=== PATIENT | female | born 1960 | race Two or more races ===

== ENCOUNTER 2017-04-03 05:44 | Inpatient (IN) | payer OTHER ==
[~2017-04-03] VITALS: Ht 170.2 cm; Wt 108.0 kg
[2017-04-03] VITALS (13 sets, daily range): BP systolic 119–145; BP diastolic 67–87
[2017-04-03] MEDS ORDERED: LR 1000ml 1,000 ML IVLG SCH (06:16)
[2017-04-03] MEDS ORDERED: Vancomycin 1gm inj IVPB ONE (06:26)
[2017-04-03] MEDS ORDERED: Thrombin 5000 units TOPIC ONE (06:26)
[2017-04-03] MEDS ORDERED: Bacitracin 50000 Units Vial ONE (06:27)
[2017-04-03] MEDS ORDERED: Bupivacaine 0.5% Inj 30 ml vial INJ ONE ×2 (06:27→07:19)
[2017-04-03] MEDS ORDERED: Norco 5mg/325mg tab ORAL PRN ×2 (06:30→07:30)
[2017-04-03] MEDS ORDERED: Midazolam 2mg/2ml Inj IVP PRN (06:30)
[2017-04-03] MEDS ORDERED: Norco 7.5mg/325mg tab ORAL PRN ×3 (06:30→07:30)
[2017-04-03] MEDS ORDERED: Ketorolac 30mg Inj IV PRN (06:30)
[2017-04-03] MEDS ORDERED: LORazepam Inj 2mg/ml 1ml IV PRN (06:30)
[2017-04-03] MEDS ORDERED: Acetaminophen (Non formulary) 100 ML IV ONE (06:30)
[2017-04-03] MEDS ORDERED: DiphenhydrAMINE 50mg/ml Inj IVP PRN (06:30)
[2017-04-03] MEDS ORDERED: Metoclopramide 10mg/2ml Inj IVP PRN ×2 (06:30→07:30)
[2017-04-03] MEDS ORDERED: oxyCODONE HCL/Acetaminophen 5/325mg ORAL PRN (06:30)
[2017-04-03] MEDS ORDERED: Atropine Inj 1mg/10ml Syr IV PRN (06:30)
[2017-04-03] MEDS ORDERED: Hydromorphone 0.5mg/0.5ml inj IVP PRN (06:30)
[2017-04-03] MEDS ORDERED: Ketorolac 60mg Inj IV PRN (06:30)
[2017-04-03] MEDS ORDERED: fentaNYL 100 mcg/2 mL IV PRN (06:30)
[2017-04-03] MEDS ORDERED: Labetalol 5mg/ml 20ml vial IV PRN (06:30)
[2017-04-03] MEDS ORDERED: NKM (06:39)
[2017-04-03] MEDS ORDERED: Glycopyrrolate 0.2mg/ml 1ml Vial ONE (07:00)
[2017-04-03] MEDS ORDERED: NS Irrig 1000ml ONE (07:00)
[2017-04-03] MEDS ORDERED: Neostigmine 1mg/ml 10ml Inj ONE (07:00)
[2017-04-03] MEDS ORDERED: Lidocaine 1% MPF 10mg/ml 5ml ONE (07:00)
[2017-04-03] MEDS ORDERED: Midazolam 2mg/2ml Inj ONE (07:00)
[2017-04-03] MEDS ORDERED: Dexamethasone 4mg/ml vial ONE (07:00)
[2017-04-03] MEDS ORDERED: LR 1000ml ONE (07:00)
[2017-04-03] MEDS ORDERED: Sterile Water Irrig 1000ml IRRIG ONE (07:00)
[2017-04-03] MEDS ORDERED: fentaNYL 100 mcg/2 mL IV ONE (07:00)
[2017-04-03] MEDS ORDERED: Propofol 1,000mg/ 100ml btl IV ONE (07:00)
[2017-04-03] MEDS ORDERED: ceFAZolin sod 2 GM in D5W 110 ML IVPB ONE (07:00)
--- NOTE | 2017-04-03 07:02 | Anethesia Preoperative Eval ---
Anesthesia Pre-op PMH/ROS General Date of Evaluation: Apr 03, 2017 Time of Evaluation: 07:11 Anesthesiologist: Joel ASA Score: ASA 3 Mallampati Score Class I : Soft palate, uvula, fauces, pillars visible Class II: Soft palate, uvula, fauces visible Class III: Soft palate, base of uvula visible Class IV: Only hard plate visible Mallampati Classification: Class II Surgeon: Phil Diagnosis: Back Pain Surgical Procedure: R Hemilaminotomy, Foraminotomy, Microdiscetomy, L5-S1, and L4-5 with Baxano Anesthesia History: none Family History: no anesthesia problems Allergies: Coded Allergies: No Known Allergies (Unverified , 04/02/17) Medications: see eMAR Past Medical History Cardiovascular: Reports: HTN, other - HL Other: obesity - BMI 40 Anesthesia Pre-op Phys. Exam Physician Exam Last Vital Signs Date Time Temp Pulse Resp B/P (MAP) Pulse Ox O2 Delivery O2 Flow Rate FiO2 04/03/17 06:52 97.8 69 20 145/87 97 Room Air Constitutional: NAD Neurologic: CN 2-12 intact Cardiovascular: RRR Respiratory: CTA Gastrointestinal: S/NT/ND Airway Exam Mallampati Score: Class II MO: full ROM: full Teeth: intact Anesthesia Pre-op A/P Risk Assessment & Plan Assessment: ASA 3 Plan: GA, BIS, GlideScope Status Change Before Surgery: No Pre-Antibiotics Dru Grams Ancef IV Given Within 1 Hr of Incision: Yes Time Given: 07:31 Geoffrey Maldonado MD Apr 03, 2017 07:02
--- NOTE | 2017-04-03 07:29 | Pre-Procedure Note/Attestation ---
Pre-Procedure Note/Attestation Complete Prior to Procedure Planned Procedure: right Procedure Narrative: Right sided L5S1 microdiscectomy, hemilaminotomy foraminotomy decompression of L5S1 and L45 with baxano Indications for Procedure Pre-Operative Diagnosis: stenosis, herniation at L45 and L5S1 Attestation I attest that I discussed the nature of the procedure; its benefits; risks and complications; and alternatives (and the risks and benefits of such alternatives ), prior to the procedure, with the patient (or the patient's legal inbound customer service representative). I attest that, if there was a reasonable possibility of needing a blood transfusion, the patient (or the patient's legal inbound customer service representative) was given the [place] Department [employer] standardized written summary, pursuant to the Julio Rigo Blood Safety Act ([place] Health and Safety Code # 1645, as amended). I attest that I re-evaluated the patient just prior to the surgery and that there has been no change in the patient's H&P, except as documented below: JAGDEEP RODNEY Apr 03, 2017 07:29
[2017-04-03] MEDS ORDERED: HYDROmorphone 1mg/ml Carpuject SUBQ PRN (07:30)
[2017-04-03] MEDS ORDERED: Naloxone 0.4mg/ml Inj IVP PRN (07:30)
[2017-04-03] MEDS ORDERED: HYDROmorphone 1mg/ml Carpuject IVP PRN (07:30)
[2017-04-03] MEDS ORDERED: Chloraseptic Spray 20mL Bottle ORAL PRN (07:30)
[2017-04-03] MEDS ORDERED: Milk of Magnesia 30ml Ud ORAL PRN (07:30)
--- NOTE | 2017-04-03 07:30 | Brief Operative Note ---
Immediate Post Operative Note Operative Note Chief Complaint: back pain and right leg pain Pre-op Diagnosis: stenosis, herniation at L45 and L5S1 Procedure: Right sided L5S1 microdiscectomy, hemilaminotomy foraminotomy decompression of L5S1 and L45 with bridger Post-op Diagnosis: same as pre-op Findings: consistent w/pre-op dx studies Surgeon: Phil Coating Mixer Tender: Amina Anesthesia: general Specimen: none Complications: none Condition: stable Estimated Blood Loss: minimal Drains: none Implant(s) used?: Yes - bridger ubtcher 12 JAGDEEP RODNEY Apr 03, 2017 07:30
--- NOTE | 2017-04-03 08:24 | Immediate Post-Op Evaluation ---
Immediate Post-Op Evalulation Immediate Post-Op Evalulation Procedure: R Hemilaminotomy, Foraminotomy, Microdiscetomy, L5-S1, and L4-5 with Baxano Date of Evaluation: Apr 03, 2017 Time of Evaluation: 09:54 IV Fluids: 1000 LR Blood Products: 0 Estimated Blood Loss: 50 Urinary Output: 450 Blood Pressure Systolic: 133 Blood Pressure Diastolic: 74 Pulse Rate: 75 Respiratory Rate: 16 O2 Sat by Pulse Oximetry: 100 Temperature (Fahrenheit): 98.9 Pain Score (1-10): 3 Nausea: No Vomiting: No Complications 0 Patient Status: awake, reacts, patent, extubated, none Hydration Status: adequate Dru Grams Ancef IV Given Within 1 Hr of Incision: Yes Time Given: 07:31 Geoffrey Maldonado MD Apr 03, 2017 08:24
--- NOTE | 2017-04-03 12:44 | Diagnostic Imaging Report ---
Indication: Right lower extremity pain, intraoperative Technique: Intraoperative images Comparison: none Findings: Intraoperative images document initially a surgical tool posterior to the L5 vertebral body, subsequently placement of the Baxano device at the L5-S1 level Impression: Intraoperative imaging, as described
[2017-04-03] MEDS: Dexamethasone 4mg/ml vial IVP SCH ×2 (14:05→18:08)
--- NOTE | 2017-04-03 14:44 | Consultation ---
History of Present Illness General Date patient seen: Apr 03, 2017 Time patient seen: 14:44 Chief Complaint: back pain and R leg pain Referring physician: Dr. Villarreal Reason for Consultation: valentina saab Present Illness HPI 57y/o female with pmh of stenosis and herniation at L45 and L5S1 who is now s/p R sided L5S1 microdiscectomy, hemilaminotomy foraminotomy decompression of L5S1 and L45 with baxano on 04/03/17. No periop or postop complications. Postop pain appears well controlled. Denies f/c, n/v, d/c, chest pain, SOB. Allergies: Coded Allergies: No Known Allergies (Unverified , 04/02/17) Medication History Scheduled No Known Medications* (NKM - No Known Medications*), 0 ., (Reported) Patient History History Provided By: Patient, Family Member, PMD Healthcare decision maker TERESA-SON Resuscitation status Full Code Advanced Directive on File Past Medical/Surgical History Past Medical/Surgical History: (1) Lumbar spinal stenosis (2) HNP (herniated nucleus pulposus), lumbar Family History Family History: (1) No significant family history Social History Social History: (1) No significant social history Review of Systems ROS Narrative CONSTITUTIONAL: No weight loss, fever, chills, weakness or fatigue. HEENT: Eyes: No visual loss, blurred vision, double vision or yellow sclerae. Ears, Nose, Throat: No hearing loss, sneezing, congestion, runny nose or sore throat. SKIN: No rash or itching. CARDIOVASCULAR: No chest pain, chest pressure or chest discomfort. No palpitations or edema. RESPIRATORY: No shortness of breath, cough or sputum. GASTROINTESTINAL: No anorexia, nausea, vomiting or diarrhea. No abdominal pain or blood. NEUROLOGICAL: No headache, dizziness, syncope, paralysis, ataxia, numbness or tingling in the extremities. No change in bowel or bladder control. MUSCULOSKELETAL: No muscle, back pain, joint pain or stiffness. HEMATOLOGIC: No anemia, bleeding or bruising. LYMPHATICS: No enlarged nodes. No history of splenectomy. PSYCHIATRIC: No history of depression or anxiety. ENDOCRINOLOGIC: No reports of sweating, cold or heat intolerance. No polyuria or polydipsia. ALLERGIES: No history of asthma, hives, eczema or rhinitis. Physical Exam Physical Exam Narrative General: alert, cooperative, no distress, appears stated age Head: normocephalic, without obvious abnormality, atraumatic Eyes: conjunctivae/corneas clear. PERRL, EOM's intact Throat: lips, mucosa, and tongue normal. MMM Neck: supple, symmetrical, trachea midline, and no JVD Lungs: clear to auscultation bilaterally Heart: regular rate and rhythm, S1, S2 normal, no murmur, click, rub or gallop Abdomen: soft, non-tender, non-distended, bowel sounds normal; no masses or organomegaly Extremities: extremities normal, atraumatic, no cyanosis or edema Pulses: 2+ and symmetric Skin: skin color, texture, turgor normal; dressing c/d/i Neurologic: grossly normal, no focal deficits Last 24 Hour Vital Signs Date Time Temp Pulse Resp B/P (MAP) Pulse Ox O2 Delivery O2 Flow Rate FiO2 04/03/17 13:15 97.7 72 18 123/69 96 Nasal Cannula 2.0 04/03/17 12:15 97.9 75 18 126/70 98 Nasal Cannula 2.0 04/03/17 11:45 97.7 71 18 123/69 95 Nasal Cannula 2.0 04/03/17 10:45 98.9 74 19 134/79 98 Nasal Cannula 2.0 04/03/17 10:36 98.9 04/03/17 10:36 98.9 04/03/17 10:30 73 20 135/79 98 Nasal Cannula 2.0 04/03/17 10:15 68 20 141/79 98 Nasal Cannula 2.0 04/03/17 10:03 73 19 134/78 97 Simple Mask 6.0 04/03/17 09:53 77 18 136/81 97 Simple Mask 6.0 04/03/17 09:48 77 18 142/79 97 Simple Mask 6.0 04/03/17 09:46 75 16 100 04/03/17 09:43 98.9 76 18 131/83 97 Simple Mask 6.0 04/03/17 06:52 97.8 69 20 145/87 97 Room Air 04/03/17 06:30 98.9 Intake and Output 04/03/17 04/04/17 19:00 07:00 Intake Total 1240 ml Output Total 500 ml Balance 740 ml Intake Oral 240 ml IV Total 1000 ml Output Urine Total 450 ml Estimated Blood Loss 50 ml Height (Feet): 5 Height (Inches): 7.00 Weight (Pounds): 238 Medications Current Medications Medications (Trade) Dose Ordered Sig/Jacqueline Route PRN Reason Start Time Stop Time Status Last Admin Dose Admin Acetaminophen (Tylenol) 650 mg Q4H PRN ORAL headache or temp>101 04/03/17 07:30 05/03/17 07:29 Acetaminophen/ Hydrocodone Bitart ([place] 5/325) 1 tab Q1H PRN ORAL Mild Pain (Pain Scale 1-3) 04/03/17 06:30 Acetaminophen/ Hydrocodone Bitart ([place] 5/325) 1 tab Q3H PRN ORAL pain score 1-3 04/03/17 07:30 04/10/17 07:29 Acetaminophen/ Hydrocodone Bitart ([place] 7.5/325) 1 ea Q1H PRN ORAL Moderate Pain (Pain Scale 4-6) 04/03/17 06:30 Acetaminophen/ Hydrocodone Bitart ([place] 7.5/325) 1 ea Q3H PRN ORAL pain score 4-6 04/03/17 07:30 04/10/17 07:29 Acetaminophen/ Hydrocodone Bitart ([place] 7.5/325) 2 ea Q3H PRN ORAL pain scale 7-10 04/03/17 07:30 04/10/17 07:29 Al Hydroxide/Mg Hydroxide (Mylanta) 15 ml Q1H PRN ORAL gi upset 04/03/17 06:30 Atropine Sulfate (Atropine) 0.5 mg Q5M PRN IV HR <40 04/03/17 06:30 Carisoprodol (Soma) 350 mg TIDPRN PRN ORAL SPASM 04/03/17 07:30 05/03/17 07:29 Cefazolin Sodium 1 gm/Dextrose 55 ml @ 110 mls/hr Q8H IV 04/03/17 16:00 04/04/17 08:29 Cetylpyridinium Chloride (Cepacol) 1 lozenge EVERY 2 HOURS PRN GIANFRANCO To Patient Comfort 04/03/17 07:30 05/03/17 07:29 04/03/17 14:05 Dexamethasone Sodium Phosphate (Decadron 4mg/ml vial) 4 mg Q6HR IVP 04/03/17 12:45 04/04/17 06:01 04/03/17 14:05 Diphenhydramine HCl (Benadryl) 25 mg Q15M PRN IVP Itching 04/03/17 06:30 Docusate Sodium (Colace) 100 mg TWICE A DAY ORAL 04/03/17 18:00 05/03/17 17:59 Fentanyl Citrate (Sublimaze 100 mcg/2 mL) 25 mcg Q10M PRN IV Moderate Pain (Pain Scale 4-6) 04/03/17 06:30 Hydralazine HCl (Apresoline) 5 mg Q30M PRN IV SBP>160 / DBP>90 04/03/17 06:30 Hydromorphone HCl (Dilaudid) 0.5 mg Q15M PRN IVP Severe Pain (Pain Scale 7-10) 04/03/17 06:30 04/03/17 10:24 Hydromorphone HCl (Dilaudid) 1 mg Q2H PRN IVP Breakthrough Pain 04/03/17 07:30 04/10/17 07:29 Hydromorphone HCl (Dilaudid) 1 mg Q4H PRN SUBQ Mild Pain (Pain Scale 1-3) 04/03/17 07:30 04/10/17 07:29 Hydromorphone HCl (Dilaudid) 2 mg Q3H PRN SUBQ Severe Pain (Pain Scale 7-10) 04/03/17 07:30 04/10/17 07:29 Hydromorphone HCl (Dilaudid) 2 mg Q4H PRN SUBQ Moderate Pain (Pain Scale 4-6) 04/03/17 07:30 04/10/17 07:29 Ketorolac Tromethamine (Toradol 30mg) 15 mg Q1H PRN IV Moderate Breakthru Pain (5-7) 04/03/17 06:30 Ketorolac Tromethamine (Toradol) 60 mg Q1H PRN IV Severe Breakthru Pain (>7) 04/03/17 06:30 04/03/17 10:06 Labetalol HCl (Normodyne) 5 mg Q10M PRN IV SBP>160 / DBP>90 04/03/17 06:30 04/04/17 06:29 Lorazepam (Ativan 2mg/ml 1ml) 1 mg Q15M PRN IV For Anxiety 04/03/17 06:30 Magnesium Hydroxide (Mom) 30 ml QIDPRN PRN ORAL Constipation 04/03/17 07:30 05/03/17 07:29 Metoclopramide HCl (Reglan) 10 mg Q1H PRN IVP Nausea & Vomiting 04/03/17 06:30 Metoclopramide HCl (Reglan) 10 mg Q6H PRN IVP for moderate N/V 04/03/17 07:30 05/03/17 07:29 Midazolam HCl (Versed 2mg/2ml vial) 1 mg Q15M PRN IVP For Anxiety 04/03/17 06:30 Naloxone HCl (Narcan) 0.1 mg PRN PRN IVP RR<12/min, pt unarousable 04/03/17 07:30 05/03/17 07:29 Ondansetron HCl (Zofran) 4 mg Q1H PRN IVP Nausea & Vomiting 04/03/17 06:30 Ondansetron HCl (Zofran) 4 mg Q6H PRN IVP SEVERE Nausea & Vomiting 04/03/17 07:30 05/03/17 07:29 Oxycodone/ Acetaminophen (Percocet 5-325) 1 tab Q1H PRN ORAL Severe Pain (Pain Scale 7-10) 04/03/17 06:30 Phenol/Menthol (Chloraseptic) 1 spray Q3H PRN ORAL To Patient Comfort 04/03/17 07:30 05/03/17 07:29 Prochlorperazine (Compazine) 10 mg Q6H PRN IVP Nausea & Vomiting 04/03/17 07:30 05/03/17 07:29 Sodium Chloride 1,000 ml @ 100 mls/hr Q10H IV 04/03/17 13:30 05/03/17 13:29 Temazepam (Restoril) 15 mg HSPRN PRN ORAL Insomnia 04/03/17 07:30 04/10/17 07:29 Assessment/Plan Problem List: (1) Lumbar spinal stenosis ICD Codes: M48.061 - Spinal stenosis, lumbar region without neurogenic claudication SNOMED: 50414581 (2) HNP (herniated nucleus pulposus), lumbar ICD Codes: M51.26 - Other intervertebral disc displacement, lumbar region SNOMED: 375363552 Status: stable Assessment/Plan s/p R sided L5S1 microdiscectomy, hemilaminotomy foraminotomy decompression of L5S1 and L45 with baxano on 04/03/17 Post operative recommendations include: - encourage mobilization/ambulation - encourage incentive spirometry to optimize pulmonary hygiene - DVT/GI prophylaxis as appropriate - PT/OT - pain control, supportive care, bowel regimen FULL CODE D/w pt/family, RN, surgery regarding mgmt and dispo Rich Gonzales M.D. Apr 03, 2017 14:44
[2017-04-03] MEDS: ceFAZolin sod 1 GM in D5W 55 ML IV SCH (15:51)
[2017-04-03] MEDS: NS w/KCl 20mEq 1,000 ML IV SCH ×2 (15:51→23:23)
[2017-04-03] MEDS: Docusate 100mg cap ORAL SCH (18:08)
[2017-04-04] VITALS: BP 110/66
[2017-04-04] MEDS: ceFAZolin sod 1 GM in D5W 55 ML IV SCH ×2 (01:21→09:20)
[2017-04-04] MEDS: Dexamethasone 4mg/ml vial IVP SCH ×2 (01:21→06:54)
[2017-04-04 04:00] VITALS: BP 126/65
[2017-04-04 08:00] VITALS: BP 122/62
[2017-04-04] MEDS: NS w/KCl 20mEq 1,000 ML IV SCH (09:20)
[2017-04-04] MEDS: Docusate 100mg cap ORAL SCH (09:20)
[2017-04-04 10:45] VITALS: BP 122/62
--- NOTE | 2017-04-04 10:45 | 48 Hour Post Anesthesia Eval ---
Post Anesthesia Evaluation Procedure: R Hemilaminotomy, Foraminotomy, Microdiscetomy, L5-S1, and L4-5 with Baxano Date of Evaluation: Apr 04, 2017 Time of Evaluation: 10:43 Blood Pressure Systolic: 122 0: 62 Pulse Rate: 72 Respiratory Rate: 20 Temperature (Fahrenheit): 97.6 O2 Sat by Pulse Oximetry: 98 Airway: patent Nausea: No Vomiting: No Pain Intensity: 2 Hydration Status: adequate Cardiopulmonary Status: stable Mental Status/LOC: patient returned to baseline Follow-up Care/Observations: n/a Post-Anesthesia Complications: none Follow-up care needed: N/A CASIE DURHAM M.D. Apr 04, 2017 10:45
[2017-04-04] MEDS ORDERED: Flu Vaccine Quadrivalent 0.5ml IM ONE (16:30)
--- NOTE | 2017-04-04 21:45 | Discharge Summary ---
DATE OF ADMISSION: 04/03/2017 DATE OF DISCHARGE: 04/04/2017 PROCEDURE PERFORMED DURING ADMISSION: Hemilaminotomy, foraminotomy, and microdiscectomy of right-sided L4-L5 and L5-S1. REASON FOR ADMISSION: Lumbar herniation at L4-L5 and L5-S1. HOSPITAL COURSE/TREATMENT RENDERED: PROCEDURE PERFORMED DURING ADMISSION: Hemilaminotomy, foraminotomy, and microdiscectomy of right-sided L4-L5 and L5-S1. DISCHARGE PHYSICAL EXAMINATION: 1. The patient was ambulating with and without the assistance of physical therapy. 2. Prior to discharge home, incision was clean and dry with minimal swelling. 3. Follows commands. 4. Alert and oriented. 5. Hall discontinued, voiding. 6. Incentive spirometer at bedside. 7. IVF Hep-Locked. MOTOR: Demonstrates expected postoperative bulk and tone. Moves biceps, triceps, and deltoid musculature on command. Moves hip flexors, quadriceps, tibialis anterior, EHL, gastrocsoleus musculature on command as well. TREATMENT RENDERED: 1. Daily nursing care. 2. Physical therapy. 3. Occupational therapy. 4. Intravenous medications. 5. Oral medications. 6. Daily postoperative examinations by Spine Surgery team. CONDITION OF PATIENT ON DISCHARGE: The condition on discharge is stable for discharge to home. DISCHARGE INSTRUCTIONS: Our specific instructions relating to physical activity, medications, diet, and follow-up care are detailed in our standard operative folder and were given to this patient prior to surgery. We will however summarize these briefly as stated below. Regarding physical activity, we would like the patient to limit their flexion, extension, and rotation. We also require a limitation on their bending, lifting, and twisting. All medication has been called in prior to surgery to their pharmacy of choice. They can resume their regular diet once tolerated. We would like them to shower and limit soaking the wound in a tub/Jacuzzi/the ocean for a period of one month or until the incision is completely healed. We will have them follow up in our office in three weeks' time for their regularly scheduled appointment. They understand to call our office tomorrow to schedule the time for their three-week followup appointment. The patient will notify us should they experience any increase in the severity of pain, redness, swelling, or drainage from their incision. Vinnie Villarreal M.D. DR: Noemi JOB#: [id number] CC: SOLANGE
--- NOTE | 2017-04-07 12:15 | Operative Note - Dictated ---
DATE OF OPERATION: 04/03/2017 SURGEON: Vinnie Villarreal MD, Orthopaedic Spine Surgeon INSULATION HELPER: CHAN Adair ANESTHESIA: General endotracheal anesthesia. PREOPERATIVE DIAGNOSES: 1. Intractable back pain. 2. Intractable leg pain. 3. Worsening radiculopathy. 4. Weakness. 5. Herniated nucleus pulposus, L4-L5 and L5-S1. 6. Neural foraminal stenosis, L4-L5 and L5-S1. POSTOPERATIVE DIAGNOSES: 1. Intractable back pain. 2. Intractable leg pain. 3. Worsening radiculopathy. 4. Weakness. 5. Herniated nucleus pulposus, L4-L5 and L5-S1. 6. Neural foraminal stenosis, L4-L5 and L5-S1. PROCEDURES PERFORMED: 1. Right-sided L4-L5 and L5-S1 microdiscectomy. 2. L4-L5 and L5-S1 hemilaminotomy, foraminotomy and medial facetectomy. 3. L4-L5 and L5-S1 neural foraminotomy through a transpedicular intraforaminal approach. 4. Use of intraoperative microscope. 5. Supervision and interpretation of intraoperative fluoroscopy. 6. Supervision and interpretation of somatosensory-evoked potential and free running EMG monitoring. EBL: Less than 100 mL. COMPLICATIONS: None. INDICATIONS FOR THE PROCEDURE: The patient presents for intractable back pain and radiculopathy. The patient tried and failed a prolonged course of conservative management, including but not limited to chiropractic therapy, physical therapy, nonsteroidal anti-inflammatory drugs, medication, ice packs as well as epidural injection. Despite these therapies, the patient still developed recalcitrant pain and elected for definitive management in the form of right-sided L4-L5 and L5-S1 microdiscectomy; L4-L5 and L5-S1 hemilaminotomy, foraminotomy and medial facetectomy; and L4-L5 and L5-S1 neural foraminotomy through a transpedicular intraforaminal approach. We had a long discussion with him regarding definitive surgical treatment options. The patient's MRI demonstrated herniated nucleus pulposus, L4-L5 and L5-S1 and neural foraminal stenosis, L4-L5 and L5-S1 and as a result, I felt he would benefit from the discectomy as well as neural foraminotomy at this level. We had a long discussion with the patient regarding the risks, alternatives, and benefits of surgery. Our description of the risks included a discussion in person as well as a signed consent which detailed all pertinent risks and the procedure itself. Briefly, our discussion included but was not limited to infection, bleeding, pseudarthrosis, spinal cord injury, neurovascular injury, dural tear, CSF leak, neuropathy, paralysis, permanent weakness/drop foot, paresthesias blindness, palsy and weakness. The patient understood there may be a need for revision surgery or additional procedures. Approach related complications including dysphonia, dysphagia, blindness, permanent vocal cord and neural injury, hematoma, swallowing and breathing difficulty. Medical complications including liver, kidney, shock, and cardiopulmonary failure. Anesthesia complications including , swelling. Damage to the musculature, larynx (voice injury or loss),esophagus (throat), trachea, blood vessels and muscles (muscular sprain) and lungs (pneumothorax) during this surgical procedure. Injury to deeper structures may be temporary or permanent. The patient understood these and elected to proceed. A written and verbal consent was given. We discussed the pros and cons of all the alternatives. We discussed the uncertainties associated with the decision. Afterwards I assessed the patients understanding and explored their preferences. All questions were answered and no guarantees were given. Medical clearance was obtained prior to surgery. OPERATIVE FINDINGS: A broad-based disc herniation at L4-L5 and L5-S1, which encroached on the thecal sac and neural foraminal elements therein. This disc was acute in nature and not calcified. It was mobile and free floating and resected easily. There were also neural foraminal stenoses at L4-L5 and L5-S1. DESCRIPTION OF PROCEDURE: Under the benefit of general endotracheal anesthesia and with the assistance of the entire operative team, the patient was moved from the [facility] onto the operative table in the prone position on a Jose frame. The head was secured and positioned appropriately. Bilateral arms were secured with Gel pads and foam and all bony prominences were padded. The bilateral lower extremity SCD and LAURENCE hose were placed for DVT prophylaxis. A surgical timeout was called which corroborated our planned procedure. Preoperative Antibiotics were administered within 30 minutes of the incision for prophylaxis. Decadron was given for preoperative steroids. Using lateral radiography, the operative levels were delineated. An incision was marked based on our interpretation of lateral radiography and afterwards the body was prepped and draped in the usual sterile manner. The family was notified that we were ready to commence surgery and were called in the waiting room hourly for updates. An incision was based on our lateral fluoroscopic image to center the incision at the L5-S1 interspace. The wound was prepped and draped in the usual sterile fashion. Using a scalpel a midline incision was taken down through the skin and subcutaneous tissues until the overlying hemilamina of L4-L5 and L5-S1 were visualized. Next, using meticulous hemostasis, hemilaminotomies were dissected and retractors were placed. Using a Jasper dental we confirmed placement at the L4-L5 and L5-S1 interspace. We next turned our attention to our decompression. A standard hemilaminotomy foraminotomy medial facetectomy was performed at each level in standard fashion using a Midas-Kendall type AM8 drill bit, straight and angled curettage, and Kerr[place] 4 rongeurs until the lateral thecal sac margin and traversing nerve root was visualized. All remainders of the ligamentum flavum and lateral bony margins were resected in total with angled curettage and Kerrison 4 rongeurs until the lateral thecal sac margin and traversing nerve root was visualized and decompressed. We next turned our attention toward our L4-L5 and L5-S1 microdiscectomy on the right side. A [place] 4 was used to gently mobilize the thecal sac medially and this was held retracted with a bayonetted nerve root retractor. It was at this point that we noted a large broad-based disc protrusion with encroachment dorsally on the thecal sac neural foraminal contents. A bayonet and nerve root retractor was then placed carefully to retract the thecal sac and a discectomy was performed using a combination of a long handled 15 blade scalpel, downgoing and straight pituitaries and downgoing curettage. Afterward the disc space was irrigated twice with 20 mL of antibiotic-impregnated saline. All loose and free-floating disc fragments were carefully resected with a narrow pituitary. Having been satisfied with our decompression after our discectomy of all neural elements we next turned our attention to our neural foraminoplasty/foraminotomy. This was performed through a transpedicular intraforaminal approach using an access probe followed by a neuro check device, which confirmed ventral placement of our nerve root. Once we confirmed we were safe we next turned our attention towards placement of our size 10 file under direct microscopic visualization and under lateral fluoroscopy. Using pre and post reciprocation imaging we were able to visualize our direct decompression given the reciprocation allowed for re-creation of the neural foraminal arch at L4-L5 and L5-S. Afterwards hemostasis was obtained with 60 mL of antibiotic-impregnated saline followed by FloSeal and Gelfoam. After sponge and needle count were found to be correct, next we turned our attention to closure. Closure consisted of 1-0 Vicryl in standard interrupted fashion. Zosyn was placed deep to the fascia and superficial to the fascia for Antibiotic prophylaxis. Skin closure was performed with 2-0 Vicryl in interrupted fashion followed by a running Monocryl for the skin. Final dressings consisted of Dermabond for the superficial skin, Telfa and Tegaderm. The patient tolerated the procedure well. The patient was extubated after the conclusion of surgery without incident. We discussed the findings of the surgery with the family upon completion of the case. At this point the patient will be transferred to the spine floor for further observation. Vinnie Villarreal M.D. DR: BREANNA JOB#: [id number] CC: SOLANGE
== END 2017-04-04 16:15 | disposition home or self-care (01) | DRG 520 ==
LOC: SDSOVERFLO 05:44 → 3E 12:00
DX: M51.16 Intervertebral disc disorders with radiculopathy, lumbar region (principal); E66.01 Morbid (severe) obesity due to excess calories; I10 Essential (primary) hypertension; M51.17 Intervertebral disc disorders with radiculopathy, lumbosacral region; Z68.37 Body mass index [BMI] 37.0-37.9, adult
CPT/HCPCS: 36415; 72020; 76001; 86850; 86900; 86901; 87081; 90630; 94003; 94150; J2250; J2405; J2710